=== PATIENT | male | born 1970 | race Caucasian/White ===

== ENCOUNTER 2018-05-23 12:58 | Emergency (ER) | payer MEDICAID ==
[~2018-05-23] VITALS: Ht 177.8 cm; Wt 77.0 kg
[2018-05-23 13:14] VITALS: BP 110/73
== END 2018-05-23 17:19 | disposition left against medical advice (07) ==
LOC: ER 13:54
DX: Z53.21 Procedure and treatment not carried out due to patient leaving prior to being seen by health care provider (principal)

== ENCOUNTER 2019-01-30 15:23 | Emergency (ER) | payer MEDICAID, MEDICARE ==
[~2019-01-30] VITALS: Ht 177.8 cm; Wt 82.0 kg
[2019-01-30 17:42] VITALS: BP 112/72
== END 2019-01-30 17:47 | disposition home or self-care (01) ==
LOC: ER 15:23
DX: R42 Dizziness and giddiness (principal)
CPT/HCPCS: 93005; 99283; Z7610

== ENCOUNTER 2019-03-03 19:39 | Emergency (ER) | payer MEDICARE ==
[~2019-03-03] VITALS: Ht 177.8 cm; Wt 83.0 kg
[2019-03-03 23:31] VITALS: BP 112/72
== END 2019-03-03 23:41 | disposition home or self-care (01) ==
LOC: ER 19:39
DX: H61.22 Impacted cerumen, left ear (principal)
CPT/HCPCS: 99282

== ENCOUNTER 2019-05-14 12:50 | Emergency (ER) | payer MEDICARE ==
[~2019-05-14] VITALS: Ht 180.3 cm; Wt 84.0 kg
[2019-05-14 12:55] VITALS: BP 128/78
== END 2019-05-14 16:07 | disposition left against medical advice (07) ==
LOC: ER 12:50
DX: Z53.21 Procedure and treatment not carried out due to patient leaving prior to being seen by health care provider (principal)

== ENCOUNTER 2022-05-07 13:27 | Emergency (ER) | payer OTHER ==
[~2022-05-07] VITALS: Ht 167.6 cm; Wt 78.0 kg
[~2022-05-07 13:27] MED LIST: NAPR-681 PO
[2022-05-07 13:37] VITALS: BP 132/86
[2022-05-07] MEDS ORDERED: CYCL10TA21 MT (14:13)
== END 2022-05-07 14:32 | disposition home or self-care (01) ==
LOC: ER 13:27
DX: M79.18 Myalgia, other site (principal); R56.9 Unspecified convulsions
CPT/HCPCS: 99283

== ENCOUNTER 2023-07-14 02:22 | Emergency (ER) | payer OTHER ==
[~2023-07-14] VITALS: Ht 172.7 cm; Wt 75.0 kg
[~2023-07-14 02:22] MED LIST changes: +CYCL10TA21 MT
[2023-07-14 02:23] VITALS: BP 135/75; PULSE 85; RESP 18; TEMP 98.4; O2SAT 98
== END 2023-07-14 05:34 | disposition left against medical advice (07) ==
LOC: ER 02:22
DX: R42 Dizziness and giddiness (principal); Z53.21 Procedure and treatment not carried out due to patient leaving prior to being seen by health care provider
CPT/HCPCS: 99281